=== PATIENT | female | born 1980 | race Caucasian/White ===

== ENCOUNTER 2018-02-16 11:38 | Outpatient (CLI) | END 2018-02-16 11:39 | disposition home or self-care (01) | LOC: RHC-LAB 11:38 | PROVIDERS: ATTEND Nurse Practitioner Family | DX: Z00.00 Encounter for general adult medical examination without abnormal findings (principal); R63.4 Abnormal weight loss | CPT/HCPCS: 36415; 80053; 80061; 84443; 85025 ==

== ENCOUNTER 2018-08-05 20:01 | Emergency (ER) ==
[2018-08-05 20:05] VITALS: BP 141/90; TEMP 97.8; BMI 23.0
[2018-08-05] MEDS ORDERED: LIDOCAINE HCL 1% SDV ONE (20:25)
[2018-08-05] MEDS ORDERED: ROCEPHIN ONE (20:25)
--- NOTE | 2018-08-05 20:25 | ED.PDOC ---
General ED Provider: Dr. RODRI HERNDON MD Chief Complaint: Non-specific Complaint Stated Complaint: PAIN UNDER RIGHT ARMPIT Time Seen by Physician: 20:20 Mode of Arrival: Walk-In Information Source: Patient Exam Limitations: No limitations Primary Care Provider: MILI REED Nursing and Triage Documentation Reviewed and Agree: Yes Does patient meet sepsis criteria?: No If yes, has appropriate treatment been initiated?: Yes System Inflammatory Response Syndrome: Not Applicable Sepsis Protocol: For patient's 13 years and over: Temp is 96.8 and below OR 101 and greater Pulse >90 BPM Resp >20/minute Acutely Altered Mental Status Are patient's symptoms suggestive of a new infection, such as: -Pneumonia -Skin, Soft Tissue -Endocarditis -UTI -Bone, Joint Infection -Implantable Device -Acute Abdominal Infection -Wound Infection -Meningitis -Blood Stream Catheter Infection -Unknown Skin Complaint Exam - Skin/Soft Tissue Complaint/Exam Onset/Duration: week Symptoms Are: Still present Timing: Constant Initial Severity: Moderate Current Severity: Moderate Character: Reports: Redness, Swelling, Raised, Painful Aggravating: Reports: Touch Alleviating: Reports: Heat Related History: Reports: Similar episode (once) Related Surgical History: Reports: None Recent Exposure to Others w/Similar Symptoms: Yes Skin Findings: Present: Erythema, Fluctuant mass (3cm axilla) Review of Systems - Review Of Systems Constitutional: Reports: No symptoms Eyes: Reports: No symptoms Ears, Nose, Mouth, Throat: Reports: No symptoms Respiratory: Reports: No symptoms Cardiac: Reports: No symptoms GI: Reports: No symptoms : Reports: No symptoms Musculoskeletal: Reports: No symptoms Skin: Reports: Lesions (rIGHT AXILLA 3CM) Neurological: Reports: No symptoms Endocrine: Reports: No symptoms Hematologic/Lymphatic: Reports: No symptoms All Other Systems: Reviewed and Negative Past Medical History - Past Medical History Endocrine: Reports: None Cardiovascular: Reports: None Respiratory: Reports: None Hematological: Reports: None Gastrointestinal: Reports: None Genitourinary: Reports: None Neuro/Psych: Reports: None Musculoskeletal: Reports: None Cancer: Reports: None Last Menstrual Period: 2 - Surgical History General Surgical History: Reports: None - Family History Family History: Reports: None - Social History Smoking Status: Current every day smoker, Heavy tobacco smoker Hx Substance Use: No Alcohol Screening: Occasionally - Immunizations Tetanus Shot up to Date: Yes Physical Exam - Physical Exam Appearance: Well-appearing, No pain distress, Well-nourished Ill-appearing: None Pain Distress: Mild Eyes: GWEN, EOMI, Conjunctiva clear ENT: Ears normal, Nose normal, Oropharynx normal Neck: Supple Respiratory: Airway patent, Breath sounds clear, Breath sounds equal, Respirations nonlabored Cardiovascular: RRR, Pulses normal, No rub, No murmur GI/: Soft, Nontender, No masses, Bowel sounds normal, No Organomegaly Musculoskeletal: Normal strength, ROM intact, No edema, No calf tenderness Skin: Warm (fluctuent mass right axilla) Neurological: Sensation intact, Motor intact, Reflexes intact, Cranial nerves intact, Alert, Oriented Psychiatric: Affect appropriate Procedures - Incision and Drainage Site: right axilla Instrument Used: 11 Blade I & D Procedure: Yes: Betadine Prep, Sterile dressing applied, Packing placed Lidocaine Used: Yes Type of Drainage: Present: Pus Irrigated: Yes Critical Care Note - Critical Care Note Total Time (mins): 0 Course - Course Orders, Labs, Meds: Orders Category Date Time Status Ceftriaxone Sodium [Rocephin] MEDS 08/05/18 20:25 Discontinued 1 gm .ROUTE .STK-MED ONE Ceftriaxone Sodium [Rocephin] MEDS 08/05/18 20:27 Discontinued 1 gm IM ONCE STA Lidocaine HCl/Pf [Lidocaine HCl 1% Sdv] MEDS 08/05/18 20:27 Discontinued 2.1 ml IM ONCE STA Lidocaine HCl/Pf [Lidocaine HCl 1% Sdv] MEDS 08/05/18 20:25 Discontinued 5 ml .ROUTE .STK-MED ONE Medications Discontinued Medications Generic Name Dose Route Start Last Admin Trade Name Ulisesq PRN Reason Stop Dose Admin Ceftriaxone Sodium 1 gm 08/05/18 20:27 Rocephin IM 08/05/18 20:28 ONCE STA Lidocaine HCl 2.1 ml 08/05/18 20:27 Lidocaine Hcl 1% Sdv IM 08/05/18 20:28 ONCE STA Vital Signs: Temp Pulse Resp BP Pulse Ox 08/05/18 20:01 97.8 F 76 14 141/90 H 98 Departure - Departure Time of Disposition: 20:50 Disposition: HOME SELF-CARE Discharge Problem: Abscess, axilla Condition: Good Pt referred to PMD for follow-up: Yes IPMP verified?: No Prescriptions: Cephalexin [Keflex] 500 mg PO Q6HR 7 Days #28 capsule NS Allergies/Adverse Reactions: Allergies No Known Allergies Allergy (Unverified 08/05/18 20:03) Home Medications: Ambulatory Orders Cephalexin [Keflex] 500 mg PO Q6HR 7 Days #28 capsule NS 08/05/18 Transfer Form Completed: No Disposition Discussed With: Patient
[2018-08-05] MEDS ORDERED: ROCEPHIN IM STA (20:27)
[2018-08-05] MEDS ORDERED: LIDOCAINE HCL 1% SDV IM STA (20:27)
== END 2018-08-05 21:15 | disposition home or self-care (01) ==
LOC: ED 20:01
DX: L02.411 Cutaneous abscess of right axilla (principal); F17.210 Nicotine dependence, cigarettes, uncomplicated
CPT/HCPCS: 96372; 99282

== ENCOUNTER 2018-08-13 12:13 | Outpatient (CLI) | END 2018-08-13 12:14 | disposition home or self-care (01) | LOC: RHC-LAB 12:13 | PROVIDERS: ATTEND Nurse Practitioner Family | DX: L02.419 Cutaneous abscess of limb, unspecified (principal) | CPT/HCPCS: 87070 ==